=== PATIENT | female | born 2000 | race Caucasian/White ===

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

== ENCOUNTER 2022-11-01 01:37 | Emergency (ER) | payer OTHER ==
[~2022-11-01] VITALS: Ht 170.2 cm; Wt 90.7 kg
[2022-11-01 01:59] VITALS: BP_SYST 136; PULSE 63; RESP 20; TEMP 101.7; O2SAT 99
--- NOTE | 2022-11-01 02:00 | NUR ---
Pt from home BIB self with c/o CP x 1 week, medial and non-radiating. Pt also reports weakness, dizziness, and feeling feverish the past couple of days. Pt with temp of 101.7 temporal. requested for MSE.
--- NOTE | 2022-11-01 02:09 | NUR ---
Dr. Walker with patient at bedside for MSE.
[2022-11-01] MEDS ORDERED: ACETAMINOPHEN 500 MG TABLET PO ONE (02:15)
--- NOTE | 2022-11-01 02:26 | NUR ---
Patient to ER bed 07 to gown for evaluation. Side rails up. Report given to BRADEN LEON.
[2022-11-01] MEDS ORDERED: IBUP-1971 PO (02:40)
[2022-11-01] MEDS ORDERED: KETOROLAC TROMETHAMINE 60 MG/2 ML VIAL IM ONE (02:45)
[2022-11-01 03:00] VITALS: BP_SYST 123; PULSE 72; RESP 20; TEMP 97; O2SAT 97
--- NOTE | 2022-11-01 03:00 | NUR ---
Patient given written and verbal discharge instructions and verbalizes understanding. ER Dr. Walker discussed with patient the results and treatment provided. Patient in stable condition. ID arm band removed. Rx of motrin given. Patient educated on pain management and to follow up with PMD. Pain Scale 0. Opportunity for questions provided and answered. Medication side effect fact sheet provided.
== END 2022-11-01 03:00 | disposition home or self-care (01) ==
LOC: SED 01:37
DX: J10.1 Influenza due to other identified influenza virus with other respiratory manifestations (principal); R07.89 Other chest pain; R50.9 Fever, unspecified; M79.10 Myalgia, unspecified site; Z79.899 Other long term (current) drug therapy
CPT/HCPCS: 99283; 93005; 96372; J1885